=== PATIENT | female | born 1980 | race Hispanic/Latino ===

== ENCOUNTER 2017-05-15 07:57 | Outpatient (CLI) | payer BC ==
--- NOTE | 2017-05-15 08:25 | RAD ---
LEFT WRIST THREE VIEWS: INDICATION: Pain. FINDINGS: There is no fracture or dislocation. IMPRESSION: No acute osseous abnormality left wrist. POS: [facility]
== END 2017-05-15 07:58 | disposition home or self-care (01) ==
LOC: RAD-FRANK 07:57
PROVIDERS: ATTEND Nurse Practitioner Family
DX: M25.532 Pain in left wrist (principal)

== ENCOUNTER 2019-07-29 09:26 | Day surgery (SDC) | payer BC ==
[2019-07-29] MEDS ORDERED: Iothalamate Meglumine 60% 50 ML VIAL FS ONE (09:56)
[2019-07-29] MEDS ORDERED: Bupivacaine 0.25% HCL 30 ML VIAL ONE (09:56)
[2019-07-29] MEDS ORDERED: Fentanyl 100 MCG/2 ML VIAL ONE (10:11)
[2019-07-29] MEDS ORDERED: HYDROmorphone 0.5 MG/0.5 ML SYRINGE ONE (10:11)
[2019-07-29] MEDS ORDERED: SUGAMMADEX SODIUM 200 MG/2 ML VIAL ONE (10:12)
[2019-07-29] MEDS ORDERED: Midazolam HCl 2 mg/2 ml Vial ONE ×2 (10:12→10:32)
[2019-07-29] MEDS ORDERED: Dexamethasone 4 mg/ml Vial ONE (10:12)
[2019-07-29] MEDS ORDERED: ceFOXitin 2 GM/50 ML Duplex BAG ONE (10:33)
--- NOTE | 2019-07-29 12:41 | RAD ---
EXAM: Cholangiogram in surgery HISTORY: Intraoperative cholangiogram. Cholelithiasis COMPARISON: None FINDINGS: Limited intraoperative fluoroscopic views were taken during a cholangiogram in surgery. The common bile duct is normal in caliber without filling defect. No leakage from the common bile duct. Contrast passes into the duodenum. No abnormality of the intrahepatic bile ducts. IMPRESSION: Unremarkable cholangiogram
--- NOTE | 2019-07-29 14:50 | HP ---
CHIEF COMPLAINT: Right upper quadrant abdominal pain. HISTORY OF PRESENT ILLNESS: The patient is a 38-year-old female, who has had episodic right upper quadrant pain since late June. She says that over the last couple weeks whenever she tried to eat some fatty, she developed this right upper quadrant pain radiating to the back, associated with nausea. She went to the emergency room because it got a lot worse. Ultrasound showed cholelithiasis. She also had some mild elevation of liver function tests. She denies dark urine. She has had nausea. No vomiting. No fever. PAST MEDICAL HISTORY: Obesity and asthma. PAST SURGICAL HISTORY: None. MEDICATIONS: She takes; 1. Breo. 2. Flonase. 3. Zyrtec. ALLERGIES: SHE HAS AN ALLERGY TO SULFA. SOCIAL HISTORY: She is . She works at [employer]. No tobacco. Rare alcohol. FAMILY HISTORY: Diabetes and hypertension. PHYSICAL EXAMINATION: GENERAL: Well-developed, well-nourished female, in minimal distress. She is awake and alert, in no apparent distress. VITAL SIGNS: Temperature 98.6, pulse 78, and blood pressure 124/70. HEENT: No jaundice. LUNGS: Clear. HEART: Regular rate and rhythm. ABDOMEN: Obese, soft, tender in the right upper quadrant. EXTREMITIES: Unremarkable. LABORATORY DATA: Her white count is 7.9, H and H are 11.7 and 35, and platelet count 377. Her ALT is mildly elevated at 63, AST of 52, T-bili normal. HCG negative. IMAGING DATA: Ultrasound showed cholelithiasis with some pericholecystic fluid with some mild gall bladder wall thickening. ASSESSMENT: Acute cholecystitis. PLAN: Laparoscopic cholecystectomy with cholangiogram. CONSENT: I have discussed planned procedure as well as risk of bleeding, infection, injury to bile duct, injury to bowel, need to open, she understands and gives informed consent. Job ID: [id number]
[2019-07-29] MEDS ORDERED: Dexamethasone 20 MG/5 ML VIAL ONE (15:53)
[2019-07-29] MEDS ORDERED: Rocuronium Bromide 10 MG/ML (10ML VIAL) ONE (15:53)
[2019-07-29] MEDS ORDERED: PROPOFOL 200 MG/20 ML VIAL ONE (15:53)
[2019-07-29] MEDS ORDERED: Ondansetron PF 4 MG/2 ML Vial ONE (15:53)
--- NOTE | 2019-07-30 10:27 | OP ---
DATE OF PROCEDURE: 07/29/2019 PREOPERATIVE DIAGNOSIS: Acute cholecystitis. PROCEDURE PERFORMED: Laparoscopic cholecystectomy with intraoperative cholangiogram. INDICATIONS: This is a 38-year-old female, who has been having progressive episodic right upper quadrant pain, which has been unrelenting for the last 24 hours, went to the emergency room. Ultrasound showed multiple cholelithiasis. FINDINGS: Negative cholangiogram, distended gallbladder. DESCRIPTION OF PROCEDURE: After informed consent was obtained, the patient was taken to the operating room and given general endotracheal anesthesia. She was placed in supine position. Abdomen was prepped and draped in usual fashion. Local anesthesia was infiltrated subcutaneously and deep. A subumbilical incision was performed. Subcu divided sharply. The fascia was grasped with 2 stay sutures of 0 Vicryl placed in each side of midline. Midline incised. Digital palpation revealed no local adhesions. A blunt 12-mm trocar inserted. Pneumoperitoneum was created to a pressure of 15 mmHg. A 0-degree laparoscope inserted under direct vision. Three 5-mm ports placed subcostally. Gallbladder was grasped, advanced superiorly. There were some adhesions, which were lysed. The peritoneum opened distally to allow dissection of the cystic artery and cystic duct in critical view. A clip was placed at the base of the gallbladder. An incision made in the cystic duct and an Arrow cholangiocatheter inserted. Intraoperative cholangiogram showed free flow into the duodenum. No filling defects. The catheter removed. The cystic duct triply ligated and divided. The artery triply ligated and divided. The gallbladder removed from its fossa utilizing electrocautery. It was placed in an endosac, removed from the abdomen through the umbilical port in the endosac. Hemostasis was assured. Trocars and retractors removed. The fascia was closed with interrupted 2-0 Vicryl suture. The skin was closed with interrupted 4-0 Rapide. Dermabond applied. The patient tolerated the procedure well, transferred to Recovery in good condition. Sponge and needle count verified correct x2. Job ID: [id number]
== END 2019-07-29 14:25 | disposition home or self-care (01) ==
LOC: SDC 09:26
PROVIDERS: ATTEND Surgery
PROC: BF121ZZ Fluoroscopy of Gallbladder using Low Osmolar Contrast (ICD-10-PCS; principal; 2019-07-29)
PROC: 0FT44ZZ Resection of Gallbladder, Percutaneous Endoscopic Approach (ICD-10-PCS; principal; 2019-07-29)
DX: K80.12 Calculus of gallbladder with acute and chronic cholecystitis without obstruction (principal); J45.909 Unspecified asthma, uncomplicated; E66.9 Obesity, unspecified; Z68.36 Body mass index [BMI] 36.0-36.9, adult; Z79.899 Other long term (current) drug therapy; Z88.2 Allergy status to sulfonamides
CPT/HCPCS: 47532; 88304; J0694; J1100; J1170; J2250; J2405; J2704; J3010; S0020

== ENCOUNTER 2019-09-07 14:30 | Outpatient (CLI) | payer BC ==
--- NOTE | 2019-09-07 14:44 | RAD ---
EXAM: Chest 2 views: HISTORY: Cough COMPARISON: 12/11/2012 FINDINGS: There is a normal-sized cardiomediastinal silhouette. There is no evidence of consolidation, mass, or pleural effusion. The bones are unremarkable. IMPRESSION: No evidence of acute cardiopulmonary disease
== END 2019-09-07 14:31 | disposition home or self-care (01) ==
LOC: RAD-FRANK 14:30
PROVIDERS: ATTEND Nurse Practitioner Family
DX: R05 Cough (principal)
CPT/HCPCS: 71046

== ENCOUNTER 2020-03-21 16:08 | Outpatient (CLI) | payer BC ==
--- NOTE | 2020-03-21 16:25 | RAD ---
PA AND LATERAL VIEWS CHEST: 03/21/20 HISTORY: Shortness of breath. COMPARISON: 09/07/19. FINDINGS: The heart size is normal. The lungs are expanded without lobar consolidation, pneumothoraces, or pleu ral effusions. No acute osseous abnormalities are seen. IMPRESSION: No radiographic evidence of acute cardiopulmonary process. POS: OFF
== END 2020-03-21 16:09 | disposition home or self-care (01) ==
LOC: RAD-FRANK 16:08
PROVIDERS: ATTEND Nurse Practitioner Family
DX: R06.02 Shortness of breath (principal)
CPT/HCPCS: 71046